=== PATIENT | female | born 2000 | race Caucasian/White ===

== ENCOUNTER 2023-09-12 11:24 | Emergency (ER) | payer BC ==
[2023-09-12 11:37] VITALS: BP 128/84; O2SAT 96
--- NOTE | 2023-09-12 12:16 | ED Physician Documentation ---
History of Present Illness - Stated complaint Stated Complaint: RT HAND LAC - Chief complaint Chief Complaint: Laceration - History obtained from History obtained from: Patient - History of Present Illness Timing: Other (yesterday) Pain level max: 2 Pain level now: 1 - Additonal information Additional information: Patient is a 22-year-old female, [id number]. She presents with a laceration to the right wrist. She states that she was breaking down boxes yesterday with a pocket knife when her dog jumped and hit her hand causing the laceration. She attempted to butterfly bandage to the wound together but states it keeps opening. Unknown last tetanus shot. Denies any possibility of . She states there is mild numbness on the dorsum of the thumb. Nothing makes it better or worse. Review of Systems Constitutional: denies: Fever, Chills : denies: Now [facility] PAST MEDICAL HISTORY - Past Medical History Past Medical History: No - Past Surgical History Past Surgical History: Yes Ortho: Spine surgery - Present Medications Home Medications: Ambulatory Orders Medication Instructions Recorded Confirmed Albuterol Sulf [Ventolin Hfa 2 puffs IH DAILY PRN 09/12/23 09/12/23 Inhaler] SUMAtriptan [Imitrex] 1 tab PO DAILY PRN 09/12/23 09/12/23 - Allergies Allergies/Adverse Reactions: Allergies Allergy/AdvReac Type Severity Reaction Status Date / Time No Known Drug Allergies Allergy Verified 09/12/23 11:31 - Social History Does the pt smoke?: No Smoking Status: Never smoker ETOH Use: [employer] ED PE NORMAL - Vitals Vital signs reviewed: Yes - General General: Alert and oriented X 3, No acute distress - Derm Derm: Warm and dry - Extremities Extremities: Other (R wrist - 2 cm linear, subcutaneous laceration to the dorsum of the right wrist. Neurovascular intact. Brisk cap refill. Full range of motion of the wrist and fingers.) - Neuro Neuro: Alert and oriented X 3 - Psych Psych: Normal mood, Normal affect Results - Vitals Vitals: Vital Signs - 24 hr 09/12/23 11:26 Temperature 37 C Heart Rate 79 Respiratory 16 Rate Blood Pressure 128/84 H O2 Saturation 96 Oxygen O2 Source Room air Procedures - Laceration (location) Right wrist Length in cm: 2 Wound type: Linear, Into subcut fat, Clean Neurovascular status: Sensory intact, Motor intact, Vascular intact Tendon involvement: Tendon intact Anesthesia: Lidocaine 1% with epi Wound preparation: Irrigated copiously NS, Wound explored, To the base Skin layer closure: Nylon, Interrupted, Size #-0 - enter number (4), Sutures - enter # (3) Other: Patient tolerated well, No complications, Neurovascular intact, Dressing applied, Tetanus booster given PD Medical Decision Making - ED course Complexity details: considered differential, d/w patient ED course: Laceration repaired. Tolerated well. Tdap given. No complications. Warnings of infection and instructions on wound care given at bedside. Also counseled on how to minimize scarring. Patient counseled regarding signs and symptoms for which I believe and urgent re-evaluation would be necessary. Patient with good understanding of and agreement to plan and is comfortable going home at this time This document was made in part using voice recognition software. While efforts are made to proofread this document, sound alike and grammatical errors may occur. Departure - Departure Disposition: 01 Home, Self Care Clinical Impression: Wrist laceration Qualifiers: Encounter type: initial encounter Laterality: right Qualified Code(s): S61.511A - Laceration without foreign body of right wrist, initial encounter Condition: Good Instructions: ED Laceration Hand Follow-Up: your,doctor in 7-10 days for suture removal [Other] Comments: Keep the wound clean. Return if you notice redness, swelling or drainage from the wound. The dressings can be changed daily. Once the wound has started to close, you can leave it uncovered as long as you are in a clean environment. The sutures to be removed in 7 to 10 days, this can be done here, at the walk-in clinic or with your doctor. Forms: PCP List Discharge Date/Time: 09/12/23 12:32
[2023-09-12] MEDS: TETANUS/DIPHTHERIA/PERTUSSIS 0.5 ML SYRINGE IM ONE (12:26)
== END 2023-09-12 12:32 | disposition home or self-care (01) ==
LOC: ED 11:24
DX: S61.511A Laceration without foreign body of right wrist, initial encounter (principal); W26.0XXA Contact with knife, initial encounter; Z23 Encounter for immunization
CPT/HCPCS: 12001; 90471; 99282